=== PATIENT | male | born 1960 | race Caucasian/White ===

== ENCOUNTER 2017-02-02 13:59 | Inpatient (IN) ==
--- NOTE | 2017-01-30 21:18 | Discharge Summary ---
<Solomon Gonzalez - Last Filed: 02/01/17 21:25> - Discharge Diagnosis (1) Fracture of femur with malunion Priority: Primary Status: Acute Qualifiers: Encounter type: subsequent encounter Femur location: unspecified portion of femur Fracture type: closed Fracture morphology: other fracture Laterality: right Qualified Code(s): S72.8X1P - Other fracture of right femur , subsequent encounter for closed fracture with malunion (2) Tobacco use Priority: Secondary Status: Chronic - Discharge Medications Home Medications: Aspirin Enteric Coated [Aspirin EC] 325 mg PO DAILY #21 tablet.dr 02/01/17 [Rx] OxyCODONE Immed Rel [Roxicodone 5 MG] 5 - 10 mg PO Q6HR PRN #40 tablet 02/01/17 [Rx] Ibuprofen [Motrin] 800 mg PO Q8HR PRN 02/02/17 [History] Allergies/Adverse Reactions: Allergies No Known Allergies Allergy (Verified 02/02/17 14:31) Primary care physician: PCP NO - Patient Status Disposition: Transfer Inpatient Rehab Fac Condition: Good - Discharge Instructions Follow Up With: Yusef Jean Baptiste MD [Partnered Physician] - 03/03/17 8:05 am Solomon Gonzalez PAC [Physician Senior Cytogenetics Laboratory Director] - 02/12/17 10:30 am (another appointment with solomon is february 19 at 8:00 am.) IBAN,PCP [Primary Care Provider] - - Hospital Course Hospital course: Mr. Fierro is a 56 year old male - Time Spent with Patient Total time spent providing and/or coordinating discharge services: <Yusef Jean Baptiste - Last Filed: 02/05/17 08:20> Date of Encounter: 02/05/17 Time of Encounter: 08:19 - Discharge Diagnosis (1) Fracture of femur with malunion Priority: Primary Status: Acute Qualifiers: Encounter type: subsequent encounter Femur location: unspecified portion of femur Fracture type: closed Fracture morphology: other fracture Laterality: right Qualified Code(s): S72.8X1P - Other fracture of right femur , subsequent encounter for closed fracture with malunion (2) Tobacco use Priority: Secondary Status: Chronic (3) Acute blood loss anemia Priority: Primary Status: Acute (4) 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 Fierro is a 56 year old male The patient had an uneventful postoperative course. They received antibiotics and physical therapy and were discharged in stable condition. There will follow -up in the office in 2 weeks. Patient had a previous flexion contracture secondary to malunion. Postoperatively overnight did well in the brace unfortunately the brace was not able to hold full extension. Postop 1. Decision was made to take patient to the OR and do a long-leg casting. Otherwise uneventful postoperative course. - Time Spent with Patient Total time spent providing and/or coordinating discharge services:
[2017-02-02] MEDS ORDERED: Vancomycin 1,250 MG in D5% in Water 250 ML IVPB ONE (14:19)
[2017-02-02] MEDS ORDERED: Albuterol 2.5 MG/3 ML NEBULIZER IH ONE (14:19)
--- NOTE | 2017-02-02 14:23 | History & Physical Report ---
Date of Encounter: 02/02/17 Time of Encounter: 14:23 24 Hour HP Update - Instructions Instructions: If the History and Physical is less than 30 days old and was completed prior to A.M. admission and or procedure and has NOT been updated on calendar day of procedure please complete this update prior to performing procedure. - Update Patient reports changes in Medical Condition: No Changes in assessment/condition: No Changes in Medication: No Preop tests/diagnostics Reviewed: Yes Surgery Remains Indicated: Yes Consent for Planned Operative Procedure(s) Verified: Yes - Pre-Operative Checklist Preoperative Checklist Indicated: No Prophylactic Antibiotic Ordered: Yes Is VTE Prophylaxis Indicated?: Yes
[2017-02-02] MEDS ORDERED: Ringers Solution, Lactated 1,000 ML IVC SCH ×2 (14:30→19:52)
[2017-02-02] MEDS ORDERED: Famotidine 20 MG/2 ML VIAL IVP ONE (14:52)
--- NOTE | 2017-02-02 14:54 | Anesthesia Evaluation PreOp ---
Date of Encounter: 02/02/17 Time of Encounter: 15:00 - Past History Planned Operation: Rt TKA Cardiac History: Denies any Significant Hx Pulmonary History: Smoker BEAUTY CULTURIST APPRENTICE History: Denies Any Significant HX Other Medical History: Denies Any Significant HX Anesthesia History: No Prior Anesthetic Complications Alcohol Use: none Drug use: none Medications and Allergies Aspirin Enteric Coated [Aspirin EC] 325 mg PO DAILY #21 tablet. 02/01/17 [Rx] OxyCODONE Immed Rel [Roxicodone 5 MG] 5 - 10 mg PO Q6HR PRN #40 tablet 02/01/17 [Rx] Ibuprofen [Motrin] 800 mg PO Q8HR PRN 02/02/17 [History] Allergies No Known Allergies Allergy (Verified 02/02/17 14:31) - Meds/Allergy Pre-op Review Medications Reviewed: Yes Allergies Reviewed: Yes Beta Blockers on Current Med List: No Anesthesia Results - Labs Laboratory Tests 01/20/17 01/20/17 16:05 16:05 Hgb 14.2 Hct 41.4 Plt Count 186 Sodium 139 Potassium 4.3 BUN 26 Creatinine 1.10 Anesthesia Exam O2 Sat Height 1.83 m Height 1.83 m Weight 90.265 kg Weight 90.265 kg Height: 6'0 Weight: 190 lbs NPO (# of Hours): MN Pain Scale: 0 - HEENT Pupil (Motor): Pupils equal, EOMI Mallampati: II Denture Type: Upper: Complete Oral Opening: Greater than 3 - BEAUTY CULTURIST APPRENTICE LOC: Oriented BEAUTY CULTURIST APPRENTICE Motor: Normal RUE, Normal LUE, Normal RLE, Normal LLE, Normal Face BEAUTY CULTURIST APPRENTICE Sensory: Normal: RUE, LUE, RLE, LLE, Face - Cardiac Rhythm: Regular Murmur: None JVD: No Carotid Bruit: No - Pulmonary Breath Sounds: bilateral Clear Respiratory Effort: Symmetrical Anesthesia Assess/Plan ASA Score: 2 Modified [place] Scale for Level of Consciousness: Cooperative, oriented, and tranquil Anesthetic Plan: General, Regional Monitoring Plan: Standard Monitors Recovery Plan: PACU (Discussed GA and RA, agrees to proceed)
[2017-02-02] MEDS ORDERED: Lidocaine -MPF 2% 2 ML VIAL ONE (14:58)
[2017-02-02] MEDS ORDERED: *HR* Propofol 200 MG/20 ML VIAL IVP ONE (14:58)
[2017-02-02] MEDS ORDERED: *HR* FentaNYL (PF) 100 MCG/2 ML VIAL ONE ×3 (14:59→17:13)
[2017-02-02] MEDS ORDERED: *HR* Midazolam HCl 2 MG/2 ML VIAL ONE (14:59)
[2017-02-02] MEDS ORDERED: Ketorolac 30 MG/ML VIAL ONE ×2 (15:29→18:23)
[2017-02-02] MEDS ORDERED: ROPIVACAINE HCL/PF 0.5% 30 ML VIAL ONE (16:00)
[2017-02-02] MEDS ORDERED: Bupivacaine/Clonidine Syringe 1 EACH SYRINGE ONE (16:01)
[2017-02-02] MEDS ORDERED: Lidocaine -MPF 4% 5 ML AMPUL ONE (16:31)
--- NOTE | 2017-02-02 16:42 | Anesthesia Procedures ---
Date of Encounter: 02/02/17 Time of Encounter: 14:52 Procedures: Anesthesia - Nerve Block Procedure Date: 02/02/17 Time: 16:00 Pre-op Diagnosis: Rt Knee OA, Arthrpathy Surgical Procedure: Rt TKA Checklist: Correct Patient Identifier Correct side: Right Blood Thinner: No Monitor Applied: EKG, BP, Pulse Oximetry Supplemental Oxygen via Nasal Cannula (L/min): 2 Sedation: Versed (mg): 2 Sedation: Fentanyl (mcg): 100 Indication: Post Op Analgesia Block Type: Femoral, Other (IPACK) Catheter placed: No Depth at skin (cm): 3 Sterile Technique: Yes Ultrasound used: Yes Anatomy identified: Yes Visual spread of Local: Yes Neuro Stimulation: Yes Nerve Stimulator Range: >0.4 - 0.6 mA Blood on Needle Aspiration: No Smooth Injection of Local: Yes Pain with Injection of Local: No Prep: Chlorhexadine Needle: 22 x 50 mm Stimuplex Local: 0.25% Bupivicaine w/Clonidine 20 mcg/cc, Ropivacaine (0.5%) Volume (cc): 30 Number of Attempts: 1 Complications: None/effective block
[2017-02-02] MEDS ORDERED: *HR* HYDROmorphone 2 MG/ML SYRINGE ONE (17:33)
[2017-02-02] MEDS ORDERED: *HR* Enoxaparin 30 MG/0.3 ML SYRINGE SQ SCH (18:00)
--- NOTE | 2017-02-02 18:13 | Orthopedic Operative Note ---
Date of procedure: 02/02/17 Pre-op diagnosis: Right distal femoral malunion, right knee arthritis Post-op diagnosis: same Procedure: Procedure: Right distal femoral Total knee replacement Estimated blood loss: 600 cc Hardware: Biomet OSS distal femoral system 7 cm right femur, 11 segment, 19.5 x 150 porous stem area tibia 75 160 x 10, 20 mm Leilani, 40 mm patella. Exam Under anesthesia: 30 degree flexion contracture and severe varus deformity , internal rotation deformity Procedural Notes: Severe distal femoral nonunion in a varus posteriorly angulated position shortened approximately 5 cm grade 4 arthritic changes medial compartment patellofemoral joint. Operative procedure: The patient was brought to the operating room and placed on the operating room table. After general anesthesia was administered the operative knee was examined. Findings were noted in the exam under anesthesia. The operative extremity was prepped and draped in sterile surgical fashion. The patient received IV antibiotics prior to skin incision. An extended midline incision was made centered over the patella. The incision was made through the skin and subcutaneous tissue. A medial parapatellar tendon approach was performed. Care was taken to preserve tissue along the medial aspect of the patella. And to protect the patella tendon. The deep MCL was released off the medial tibia. The infra patella fat pad was excised. The incision was taken approximately 18 inches proximal to the joint line. The soft tissue was removed along the anterior aspect of the femur. The ACL the PCL were excised. Subperiosteal dissection was taken down around the distal femur and extended proximally. The malunion was encountered and involved a significantly posteriorly angulated component. This was taken proximally to the area of transition. Once the area of transition was identified proximal to the malunion was transected with an oscillating saw. The distal femur was passed off as an en bloc specimen. The femur was then reamed up to a 20.5 x 1 50. Attention was then turned to the tibia. The entry holes made for intramedullary tibial guide guide was seated to resect 2 mm off the more abnormal medial side. Tibial cut was made without complication. Tibia was sized to a 75 was then reamed to a 10 x 160. Trial had good fit and fixation. The femur was then assembled it was sized to a 7 with an 11 segment. This was attached to a 19 stem by 150. Patient had full extension and flexion with a 20 mm Leilani. The patella was everted and cut was made at the level of the insertion of the quadriceps and patella tendon. The patella was sized the guide was seated and the lug holes are drilled. Trial reduction revealed excellent patella tracking. All trial components were removed all bony surfaces were irrigated. The tibia was cemented first followed by the patella. The patella was held in place with the patellar holding clamp. The femur was assembled on the back table and impacted in place in the appropriate orientation. The components were then coupled with the bushings Jose Alberto and locking pin. Patient had full extension and full flexion and excellent patella tracking. After the cement had hardened, the knee sat for 2 minutes with a Betadine saline solution. The knee was then irrigated out with 2 L of pulse irrigation. The extensor mechanism was closed with #2 PDS suture. The subcutaneous tissue was then irrigated and closed deep with #1 PDS suture superficially with 0 PDS suture and skin was closed with skin enrrique. The patient was then placed in a sterile dressing and a postoperative brace extubated and transferred to recovery room in stable condition. Anesthesia: CLIFFORD Surgeon: Yusef Jean Baptiste Floriculturist: Vida Gonzalez Condition: stable Disposition: PACU
[2017-02-02] MEDS ORDERED: Ondansetron 4 MG/2 ML VIAL IVP ONE (18:22)
[2017-02-02] MEDS: *HR* HYDROmorphone (PF) 1 MG/ML SYRINGE IVP PRN ×4 (18:36→18:56)
--- NOTE | 2017-02-02 18:57 | Anesthesia Evaluation Post Op ---
Date of Encounter: 02/02/17 Time of Encounter: 19:00 - Vital Signs Vital Signs: Vital Signs/O2 Sat/Glucose, Most Current Pulse BP Pulse Ox 02/02/17 16:01 74 173/79 100 - Lungs Lungs: Clear Ascult./Percussion - Airway Airway: Non-obstructed - Cardiovascular Regular Rate - Mental Status Mental Status: Alert & Oriented, Answers Appropriately - Pain Pain Scale: 0 - Nausea Vomiting Nausea Vomiting: Not Present - Hydration Hydration: Ice chips - Discharge PostOp Status: Transfer Patient to floor
[2017-02-02 19:37] LABS: Hemoglobin 13.3 g/dL (12.9-16.9)
[2017-02-02] MEDS ORDERED: Acetaminophen 325 MG TABLET PO PRN (19:52)
[2017-02-02] MEDS ORDERED: *HR* OxyCODONE Immed Rel 5 MG TABLET PO PRN (19:52)
[2017-02-02] MEDS ORDERED: Sennosides 8.6 MG TABLET PO PRN (19:52)
[2017-02-02] MEDS ORDERED: Ondansetron 4 MG/2 ML VIAL IVP PRN (19:52)
[2017-02-02] MEDS ORDERED: Naloxone 0.4 MG/ML INJ IVP PRN (19:52)
[2017-02-02] MEDS ORDERED: MOM Conc 10 ML UD.LIQ PO PRN (19:52)
[2017-02-02] MEDS ORDERED: Ibuprofen 800 MG TABLET PO PRN (19:52)
[2017-02-02] MEDS ORDERED: ceFAZolin 2,000 MG in D5% in Water 100 ML IVPB SCH (19:52)
[2017-02-02] MEDS ORDERED: Temazepam 15 MG CAPSULE PO PRN (19:52)
[2017-02-02] MEDS: ceFAZolin 2,000 MG in D5% in Water 100 ML IVPB SCH (21:48)
[2017-02-03] MEDS: ceFAZolin 2,000 MG in D5% in Water 100 ML IVPB SCH (04:13)
[2017-02-03] MEDS: *HR* Enoxaparin 30 MG/0.3 ML SYRINGE SQ SCH ×2 (06:09→18:28)
[2017-02-03 06:32] LABS: Hematocrit 33.4 % (37.5-50.1)
[2017-02-03 06:34] LABS: Hemoglobin 11.1 g/dL (12.9-16.9)
[2017-02-03 06:43] LABS: BUN/Creatinine Ratio 26 (6-26); Blood Urea Nitrogen 23 mg/dL (8-26); Calcium 7.8 mg/dL (8.6-10.8); Carbon Dioxide 24 mEq/L (19-29); Chloride 103 mEq/L (98-109); Glucose 126 mg/dL (70-99); Osmolality,Calculated 281 (280-300); Potassium 4.1 mEq/L (3.5-4.5); Sodium 133 mEq/L (136-145); eGFR For African Americans > 60 (> 60); eGFR For Non-African Americans > 60 (> 60)
--- NOTE | 2017-02-03 06:43 | Orthopedics Progress Note ---
Date of Encounter: 02/03/17 Time of Encounter: 06:43 - Assessment and Plan (1) Fracture of femur with malunion Current Visit: Yes Status: Acute Qualifiers: Encounter type: subsequent encounter Femur location: unspecified portion of femur Fracture type: closed Fracture morphology: other fracture Laterality: right Qualified Code(s): S72.8X1P - Other fracture of right femur , subsequent encounter for closed fracture with malunion (2) Tobacco use Current Visit: Yes Status: Chronic Subjective Interval history: pt doing well no complaints afvss operative extremity NVI dressing c/d/i calves nt continue postop care Hb 11 Objective Vital signs: Vital Signs Temp Pulse Resp BP Pulse Ox 02/03/17 06:21 97.9 F 76 16 134/84 98 02/03/17 04:00 97.4 F L 71 17 145/75 98 02/03/17 00:35 98.1 F 70 18 131/71 97 02/02/17 22:45 98.0 F 71 16 134/72 96 02/02/17 21:56 97.6 F 70 16 134/78 98 02/02/17 20:50 97.4 F L 82 16 135/72 97 02/02/17 20:20 97.6 F 64 16 128/78 95 02/02/17 19:52 96.7 F L 69 17 146/83 96 02/02/17 19:26 61 16 138/90 99 02/02/17 19:13 61 16 140/78 99 02/02/17 19:03 97.7 F 66 16 150/85 98 02/02/17 18:53 69 16 157/85 96 02/02/17 18:43 77 16 139/91 97 02/02/17 18:33 97.0 F L 82 16 139/62 94 L 02/02/17 16:01 74 173/79 100 Intake and Output 02/02/17 02/02/17 02/03/17 15:59 23:59 07:59 Intake Total 900 / 900 Output Total 800 / 800 200 / 200 Balance -800 / -800 700 / 700 Intake: IV Fluids 200 / 200 Ancef 2,000 MG In 200 / 200 Dextrose 5% 100 ML @ 200 mls/hr IVPB Q8H [facility] Rx#: [id number] Oral 700 / 700 Output: Urine 200 / 200 200 / 200 Estimated Blood Loss 600 / 600 Other: # Voids 1 Weight 90.265 kg - Labs CBC & BMP: 02/03/17 06:19 Labs: Abnormal lab results Hgb 11.1 g/dL (12.9-16.9) L D 02/03/17 06:19 Hct 33.4 % (37.5-50.1) L 02/03/17 06:19 - VTE Documentation of Mechanical Device: Venous foot pump, device Consult Discharge Plan - Plan Referrals: NO,PCP [Primary Care Provider] -
[2017-02-03] MEDS: *HR* OxyCODONE Immed Rel 5 MG TABLET PO PRN ×2 (14:04→20:59)
[2017-02-03] MEDS: *HR* HYDROmorphone (PF) 1 MG/ML SYRINGE IVP PRN ×2 (18:28→23:49)
[2017-02-04] MEDS: *HR* Enoxaparin 30 MG/0.3 ML SYRINGE SQ SCH ×2 (06:32→18:19)
[2017-02-04] MEDS: *HR* OxyCODONE Immed Rel 5 MG TABLET PO PRN (06:32)
[2017-02-04 06:55] LABS: Hematocrit 27.7 % (37.5-50.1)
--- NOTE | 2017-02-04 06:57 | Orthopedics Progress Note ---
Date of Encounter: 02/04/17 Time of Encounter: 06:56 - Assessment and Plan (1) Fracture of femur with malunion Current Visit: Yes Status: Acute Qualifiers: Encounter type: subsequent encounter Femur location: unspecified portion of femur Fracture type: closed Fracture morphology: other fracture Laterality: right Qualified Code(s): S72.8X1P - Other fracture of right femur , subsequent encounter for closed fracture with malunion (2) Tobacco use Current Visit: Yes Status: Chronic Subjective Interval history: Patient seen this morning with flexion posture of the right knee. Brace is not holding extension. Patient had a long history of a flexion contracture due to a malunion for 30 years. This is not correctable with the patient awake. Recommendation is to take the patient to the OR. To Hold the Position. Discussed This with the Patient Will Be Done Today. Objective Vital signs: Vital Signs Temp Pulse Resp BP Pulse Ox 02/04/17 06:48 98.1 F 87 16 183/84 95 02/04/17 04:00 98.0 F 69 17 114/71 95 02/03/17 23:53 100.1 F H 94 18 147/103 98 02/03/17 21:00 98.1 F 64 17 121/87 97 02/03/17 15:16 97.5 F L 90 16 145/88 98 02/03/17 11:18 97.7 F 83 16 148/64 98 Intake and Output 02/03/17 02/03/17 02/04/17 15:59 23:59 07:59 Intake Total 360 / 360 600 / 600 300 / 300 Output Total 575 / 575 375 / 375 Balance 360 / 360 25 / 25 -75 / -75 Intake: Oral 360 / 360 600 / 600 300 / 300 Output: Urine 575 / 575 375 / 375 Other: Meal Breakfast Percent of Meal Consumed 100% Stool Size Small Stool Characteristics Normal for Patient Stool Color Brown # Bowel Movements 1 - Labs CBC & BMP: 02/03/17 06:19 02/03/17 06:19 Labs: Abnormal lab results Hgb 11.1 g/dL (12.9-16.9) L D 02/03/17 06:19 Hct 33.4 % (37.5-50.1) L 02/03/17 06:19 Sodium 133 mEq/L (136-145) L 02/03/17 06:19 Glucose 126 mg/dL (70-99) H 02/03/17 06:19 Calcium 7.8 mg/dL (8.6-10.8) L 02/03/17 06:19 - VTE Documentation of Mechanical Device: Venous foot pump, device Consult Discharge Plan - Plan Referrals: NO,PCP [Primary Care Provider] -
[2017-02-04 07:05] LABS: Hemoglobin 9.5 g/dL (12.9-16.9)
[2017-02-04 07:10] LABS: BUN/Creatinine Ratio 20 (6-26); Blood Urea Nitrogen 16 mg/dL (8-26); Carbon Dioxide 26 mEq/L (19-29); Chloride 102 mEq/L (98-109); Glucose 105 mg/dL (70-99); Osmolality,Calculated 278 (280-300); Potassium 3.9 mEq/L (3.5-4.5); Sodium 133 mEq/L (136-145); eGFR For African Americans > 60 (> 60); eGFR For Non-African Americans > 60 (> 60)
[2017-02-04 07:27] LABS: Calcium 8.4 mg/dL (8.6-10.8)
[2017-02-04] MEDS: *HR* HYDROmorphone (PF) 1 MG/ML SYRINGE IVP PRN (08:57)
--- NOTE | 2017-02-04 14:59 | Anesthesia Evaluation PreOp ---
Date of Encounter: 02/04/17 Time of Encounter: 15:00 - Past History Planned Operation: Cast Placement Rt Leg Cardiac History: Denies any Significant Hx Pulmonary History: Smoker QUARRY BOSS History: Denies Any Significant HX Other Medical History: Denies Any Significant HX Anesthesia History: No Prior Anesthetic Complications Alcohol Use: none Drug use: none Medications and Allergies Aspirin Enteric Coated [Aspirin EC] 325 mg PO DAILY #21 tablet. 02/01/17 [Rx] OxyCODONE Immed Rel [Roxicodone 5 MG] 5 - 10 mg PO Q6HR PRN #40 tablet 02/01/17 [Rx] Ibuprofen [Motrin] 800 mg PO Q8HR PRN 02/02/17 [History] Allergies No Known Allergies Allergy (Verified 02/02/17 14:31) - Meds/Allergy Pre-op Review Medications Reviewed: Yes Allergies Reviewed: Yes Beta Blockers on Current Med List: No Anesthesia Results - Labs 02/04/17 06:40 02/04/17 06:40 Anesthesia Exam O2 Sat O2 Sat by Pulse Oximetry 99 O2 Sat by Pulse Oximetry 95 O2 Sat by Pulse Oximetry 95 O2 Sat by Pulse Oximetry 95 O2 Sat by Pulse Oximetry 98 O2 Sat by Pulse Oximetry 97 O2 Sat by Pulse Oximetry 98 Vital Signs Pulse BP Pulse Ox 74 173/79 100 02/02/17 16:01 02/02/17 16:01 02/02/17 16:01 Height: 6'0 Weight: 190 lbs NPO (# of Hours): MN Pain Scale: 0 - HEENT Pupil (Motor): Pupils equal, EOMI Mallampati: II Teeth: Edentulous Denture Type: Upper: Complete Oral Opening: Less than or equal to 3 - QUARRY BOSS LOC: Oriented QUARRY BOSS Motor: Normal RUE, Normal LUE, Normal RLE, Normal LLE, Normal Face QUARRY BOSS Sensory: Normal: RUE, LUE, RLE, LLE, Face - Cardiac Rhythm: Regular Murmur: None JVD: No Carotid Bruit: No - Pulmonary Breath Sounds: bilateral Clear Respiratory Effort: Symmetrical Anesthesia Assess/Plan ASA Score: 2 Modified [place]rien Scale for Level of Consciousness: Cooperative, oriented, and tranquil Anesthetic Plan: General Monitoring Plan: Standard Monitors Recovery Plan: PACU (Discussed GA, agrees to proceed)
--- NOTE | 2017-02-04 15:32 | Orthopedic Operative Note ---
Date of procedure: 02/04/17 Pre-op diagnosis: Right leg flexion position Post-op diagnosis: same Procedure: Procedure: Right leg casting No blood loss Patient status post distal femoral replacement unable to keep the leg straight in a brace decision was made to taken to the operating room straighten the leg out. Long-leg cast. Patient brought to the operating room after IV sedation was administered the brace was removed the knee went into full extension without any effort. Dressings changed wound clean dry and intact. Patient placed in a well-padded long leg cast. Patient with preoperative soft tissue skin abrasions from prior to his surgery Thursday. Patient was placed in the cast and transferred to recovery in stable condition Anesthesia: MAC Surgeon: Yusef Jean Baptiste Condition: stable Disposition: PACU
[2017-02-04] MEDS ORDERED: *HR* Propofol 200 MG/20 ML VIAL IVP ONE ×3 (15:37→15:49)
[2017-02-04] MEDS ORDERED: Ondansetron 4 MG/2 ML VIAL IVP PRN (16:06)
[2017-02-04] MEDS ORDERED: Ibuprofen 800 MG TABLET PO PRN (16:06)
[2017-02-04] MEDS ORDERED: Acetaminophen 325 MG TABLET PO PRN (16:06)
[2017-02-04] MEDS ORDERED: *HR* HYDROmorphone (PF) 1 MG/ML SYRINGE IVP PRN (16:06)
[2017-02-04] MEDS ORDERED: Naloxone 0.4 MG/ML INJ IVP PRN (16:06)
[2017-02-04] MEDS ORDERED: *HR* OxyCODONE Immed Rel 5 MG TABLET PO PRN ×2 (16:06)
[2017-02-04] MEDS ORDERED: Ringers Solution, Lactated 1,000 ML IVC SCH (16:06)
[2017-02-04] MEDS ORDERED: Temazepam 15 MG CAPSULE PO PRN (16:06)
[2017-02-04] MEDS ORDERED: Sennosides 8.6 MG TABLET PO PRN (16:06)
[2017-02-04] MEDS ORDERED: MOM Conc 10 ML UD.LIQ PO PRN (16:06)
[2017-02-05] MEDS: *HR* Enoxaparin 30 MG/0.3 ML SYRINGE SQ SCH (05:13)
--- NOTE | 2017-02-05 08:21 | Orthopedics Progress Note ---
Date of Encounter: 02/05/17 Time of Encounter: 08:21 - Assessment and Plan (1) Fracture of femur with malunion Current Visit: Yes Status: Acute Qualifiers: Encounter type: subsequent encounter Femur location: unspecified portion of femur Fracture type: closed Fracture morphology: other fracture Laterality: right Qualified Code(s): S72.8X1P - Other fracture of right femur , subsequent encounter for closed fracture with malunion (2) Tobacco use Current Visit: Yes Status: Chronic (3) Acute blood loss anemia Current Visit: Yes Status: Acute (4) Flexion contracture of right knee Current Visit: Yes Status: Chronic Subjective Interval history: Patient doing well cast intact minimal complaints patient is clear for discharge today. Hemoglobin 9.5 Objective Vital signs: Vital Signs Temp Pulse Resp BP Pulse Ox 02/05/17 06:29 98.8 F 89 16 129/78 95 02/05/17 05:08 98.7 F 86 16 136/76 96 02/05/17 01:00 98.1 F 77 16 160/77 97 02/04/17 21:05 97 02/04/17 19:29 98.7 F 88 16 165/79 97 02/04/17 17:35 99.9 F H 75 14 172/79 98 02/04/17 16:13 98.1 F 83 12 152/77 97 02/04/17 11:35 97.7 F 102 16 139/74 99 02/04/17 09:03 95 02/04/17 08:50 171/97 Intake and Output 02/04/17 02/05/17 02/05/17 23:59 07:59 15:59 Intake Total 0 / 0 400 / 400 Output Total 650 / 650 350 / 350 Balance -650 / -650 50 / 50 Intake: Oral 0 / 0 400 / 400 Output: Urine 650 / 650 350 / 350 - Labs CBC & BMP: 02/04/17 06:40 02/04/17 06:40 Labs: Abnormal lab results Hgb 9.5 g/dL (12.9-16.9) L D 02/04/17 06:40 Hct 27.7 % (37.5-50.1) L 02/04/17 06:40 Sodium 133 mEq/L (136-145) L 02/04/17 06:40 Glucose 105 mg/dL (70-99) H 02/04/17 06:40 Calculated Osmolality 278 (280-300) L 02/04/17 06:40 Calcium 8.4 mg/dL (8.6-10.8) L 02/04/17 06:40 - VTE Documentation of Mechanical Device: Venous foot pump, device Consult Discharge Plan - Plan Referrals: Yusef Jean Baptiste MD [Partnered Physician] - 03/03/17 8:05 am Solomon Gonzalez, PAC [Physician Environmental Scientist] - 02/12/17 10:30 am (another appointment with solomon is february 19 at 8:00 am.) NO,PCP [Primary Care Provider] -
[2017-02-05 10:47] VITALS: BP 136/74
== END 2017-02-05 16:00 | DRG 470 ==
LOC: SAMDAY 13:59 → 3NENU 19:49
PROVIDERS: ADMIT Orthopaedic Surgery; ATTEND Orthopaedic Surgery

== ENCOUNTER 2018-05-14 21:17 | Inpatient (IN) ==
[2018-05-14] MEDS ORDERED: Ipratropium/Albuterol Neb 3 ML IH ONE (22:14)
[2018-05-14] MEDS ORDERED: Aspirin 81 MG TAB.CHEW PO STA (22:14)
[2018-05-14 22:24] LABS: Basophils # 0.1 K/mcL (0.0-0.2); Basophils % 0.5 %; Hematocrit 41.1 % (37.5-50.1); Hemoglobin 13.8 g/dL (12.9-16.9); Immature Granulocytes % 0.3 % (0-4); Lymphocytes # 0.5 K/mcL (0.6-4.6); Lymphocytes % 4.9 %; Mean Corpuscular HGB Conc 33.6 g/dL (31.6-35.5); Mean Corpuscular Hemoglobin 30.5 pg (28.0-33.3); Mean Corpuscular Volume 90.9 fL (83.0-100.0); Mean Platelet Volume 9.5 fL (9.4-12.4); Monocytes # 0.5 K/mcL (0.0-1.3); Monocytes % 4.2 %; Platelet Count 190 K/mcL (140-400); Red Blood Count 4.52 M/mcL (4.19-5.50); Red Cell Distribution Width 13.2 % (11.5-14.5); Segmented Neutrophils % 90.1 %
[2018-05-14 22:46] LABS: BUN/Creatinine Ratio 18 (6-26); Blood Urea Nitrogen 17 mg/dL (8-23); Calcium 8.9 mg/dL (8.6-10.3); Carbon Dioxide 26 mEq/L (23-29); Chloride 103 mEq/L (98-107); Glucose 174 mg/dL (70-105); Osmolality,Calculated 290 (280-300); Potassium 3.8 mEq/L (3.5-5.1); Sodium 137 mEq/L (136-145); eGFR For African Americans > 60 (> 60); eGFR For Non-African Americans > 60 (> 60)
[2018-05-14 22:49] LABS: Troponin I 0.43 ng/mL (< 0.04)
--- NOTE | 2018-05-14 22:54 | Emergency Department Note ---
Disposition Clinical Impression: NSTEMI (non-ST elevated myocardial infarction) Disposition: Admitted As Inpatient Condition: Good Referrals: NONE,PCP [Primary Care Provider] - Forms: ED Satisfaction Letter Time of Disposition: 23:08 Chest Pain HPI - General Chief Complaint: ED Chest Pain Stated Complaint: Difficult breathing Time Seen by Provider: 05/14/18 21:53 Source: patient Limitations: no limitations Vital Signs Reviewed: Yes Nursing Notes Reviewed: Yes - History of Present Illness HPI Narrative: This is a 58 year-old male with history of peripheral vascular disease and tobacco use who presents with dyspnea and substernal chest tightness for the past 4 days. The pain was mild/intermittent at first but suddenly worsened about 3 hours prior to arrival. Associated with dyspnea. Symptoms markedly improved after EMS administered nitroglycerin. Pt complaint: chest pain, other (dyspnea) Onset (ago): day(s) (4) Duration: other (worsened 3 hours ago) Pain Location: substernal Severity: moderate Severity scale (1-10): 2 Quality: tightness, heaviness Pain Radiation: none Improves with: nothing Worsens with: exertion Associated symptoms: Reports: dyspnea. Denies: nausea, vomiting, diaphoresis, syncope, palpitations, fever, cough, leg swelling - Related Data Allergies Allergy/AdvReac Type Severity Reaction Status Date / Time No Known Allergies Allergy Verified 02/02/17 14:31 All systems ED: reviewed and negative except as stated. Constitutional: Denies: fever Cardiovascular: Reports: as per HPI, chest pain, dyspnea on exertion, edema ( chronic bilateral lower extremity edema, unchanged). Denies: palpitations Respiratory: Reports: dyspnea. Denies: cough Gastrointestinal: Denies: abdominal pain, nausea Musculoskeletal: Denies: back pain, neck pain Neurological: Denies: headache, weakness, numbness Chest Pain PMH - Past Medical History Medical history: Reports: peripheral artery disease Surgical history: Reports: knee replacement Psychiatric history: Reports: no psych history, PTSD - Social History Smoking Status: Current every day smoker Alcohol use: Reports: none Drug use: Reports: none Physical Exam - General Limitations: no limitations General appearance: alert, in no apparent distress - Head Head exam: atraumatic, normocephalic - Neck Neck exam: Present: normal inspection - Respiratory Respiratory exam: Present: wheezes (scattered bilaterally), other (decreased air entry) - Cardiovascular Cardiovascular exam: Present: regular rate, normal rhythm, normal heart sounds - Abdominal Exam Abdominal exam: Present: soft, Non-Tender. Absent: distention - Extremities Exam Extremities exam: Present: pedal edema (bilateral, R>L, patient says chronic) - Neurological Exam Neurological exam: Present: alert, oriented X3, CN II-XII intact. Absent: motor sensory deficit - Psychiatric Psychiatric exam: Present: normal affect, normal mood - Skin Skin exam: Present: warm, dry, intact Course - Reevaluation(s) Reevaluation #1: On recheck, patient remains stable, CP-free. Discussed test results with patient and family. Time: 23:07 - Consultations Consultation #1: Reviewed case with Dr. Bolanos, and patient accepted for admission, pending consultation with cardiology. Time: 23:30 Consultation #2: Reviewed case with Dr. Knutson. He is in agreement with plan of care and available for consultation. Time: 23:33 Vital Signs Temperature 97.8 F 05/14/18 21:20 Pulse Rate 96 05/14/18 21:20 Respiratory Rate 22 05/14/18 21:20 Blood Pressure 126/84 05/14/18 21:20 O2 Sat by Pulse Oximetry 99 05/14/18 21:20 Temperature 97.8 F 05/14/18 21:20 Pulse Rate 96 05/14/18 21:20 Respiratory Rate 17 05/14/18 22:54 Blood Pressure 128/82 05/14/18 22:54 O2 Sat by Pulse Oximetry 95 05/14/18 22:54 Oxygen Delivery Oxygen Delivery Non Rebreather Mask Chest Pain - Lab Data Result diagrams: 05/14/18 22:10 05/14/18 22:10 Lab Results 05/14/18 05/14/18 05/14/18 Range/Units 22:10 22:10 22:10 WBC 11.0 (4.3-11.1) K/mcL RBC 4.52 (4.19-5.50) M/mcL Hgb 13.8 (12.9-16.9) g/dL Hct 41.1 (37.5-50.1) % MCV 90.9 (83.0-100.0) fL MCH 30.5 (28.0-33.3) pg MCHC 33.6 (31.6-35.5) g/dL RDW 13.2 (11.5-14.5) % Plt Count 190 (140-400) K/mcL MPV 9.5 (9.4-12.4) fL Immature Gran % 0.3 (0-4) % Seg Neutrophils % 90.1 % Lymphocytes % 4.9 % Monocytes % 4.2 % Eosinophils % 0.0 % Basophils % 0.5 % Neutrophils # 10.0 H (1.6-8.9) K/mcL Lymphocytes # 0.5 L (0.6-4.6) K/mcL Monocytes # 0.5 (0.0-1.3) K/mcL Eosinophils # 0.0 (0.0-0.6) K/mcL Basophils # 0.1 (0.0-0.2) K/mcL PT (9.4-12.1) Seconds INR APTT (26.0-36.0) Seconds Sodium 137 (136-145) mEq/L Potassium 3.8 (3.5-5.1) mEq/L Chloride 103 (98-107) mEq/L Carbon Dioxide 26 (23-29) mEq/L BUN 17 (8-23) mg/dL Creatinine 0.92 (0.70-1.30) mg/dL Est GFR ( Amer) > 60 (> 60) Est GFR (Non-Af Amer) > 60 (> 60) BUN/Creatinine Ratio 18 (6-26) Glucose 174 H (70-105) mg/dL Calculated Osmolality 290 (280-300) Lactic Acid (0.5-2.2) mmol/L Calcium 8.9 (8.6-10.3) mg/dL Troponin I 0.43 H* (< 0.04) ng/mL B-Natriuretic Peptide 59 (Less than 100) pg/mL 05/14/18 05/14/18 Range/Units 22:10 22:12 WBC (4.3-11.1) K/mcL RBC (4.19-5.50) M/mcL Hgb (12.9-16.9) g/dL Hct (37.5-50.1) % MCV (83.0-100.0) fL MCH (28.0-33.3) pg MCHC (31.6-35.5) g/dL RDW (11.5-14.5) % Plt Count (140-400) K/mcL MPV (9.4-12.4) fL Immature Gran % (0-4) % Seg Neutrophils % % Lymphocytes % % Monocytes % % Eosinophils % % Basophils % % Neutrophils # (1.6-8.9) K/mcL Lymphocytes # (0.6-4.6) K/mcL Monocytes # (0.0-1.3) K/mcL Eosinophils # (0.0-0.6) K/mcL Basophils # (0.0-0.2) K/mcL PT 12.2 H (9.4-12.1) Seconds INR 1.1 APTT 34.0 (26.0-36.0) Seconds Sodium (136-145) mEq/L Potassium (3.5-5.1) mEq/L Chloride (98-107) mEq/L Carbon Dioxide (23-29) mEq/L BUN (8-23) mg/dL Creatinine (0.70-1.30) mg/dL Est GFR ( Amer) (> 60) Est GFR (Non-Af Amer) (> 60) BUN/Creatinine Ratio (6-26) Glucose (70-105) mg/dL Calculated Osmolality (280-300) Lactic Acid 1.6 (0.5-2.2) mmol/L Calcium (8.6-10.3) mg/dL Troponin I (< 0.04) ng/mL B-Natriuretic Peptide (Less than 100) pg/mL - Radiology Data Radiology results reviewed: Yes I reviewed the patient's radiology results. XR/XR chest 1V portable IMPRESSION: 1. Prominent interstitial markings are nonspecific but may represent underlying COPD. 2. Rounded right infrahilar opacity probably represents a pulmonary vessel on end. 3. Otherwise no definite acute consolidation. - EKG Data EKG attestation: Yes I reviewed and interpreted this EKG. EKG shows normal: sinus rhythm, axis Rate: tachycardia [place]alea/QRS: normal ST segment depression in: II, III, aVF Ectopy: PVC When compared to previous EKG there are: previous EKG unavailable (on request) Interpretation: nonspecific ST-T wave changes
[2018-05-14] MEDS ORDERED: *HR* Heparin 5,000 UNIT/ML VIAL IVP ONE ×2 (22:59→23:02)
[2018-05-14] MEDS ORDERED: *HR* Heparin 5,000 UNIT/ML VIAL IVP PRN ×2 (23:02)
[2018-05-14 23:19] LABS: INR 1.1; Prothrombin Time 12.2 Seconds (9.4-12.1)
[2018-05-14] MEDS: Heparin 25,000 UNIT/500 ML D5W 25,000 UNIT/500 ML BAG IVC SCH (23:28)
--- NOTE | 2018-05-15 | Internal Med History&Physical ---
Date of Encounter: 05/15/18 Time of Encounter: 00:00 Internal Medicine - H&P: HPI Admitted From: Home History of present illness: Mr. Fierro is a 58 year old male with h/o peripheral vascular disease and tobacco use presents with c/o difficulty breathing and chest pressure, his symptoms began this evening after he returned home from work. He states he was sitting down when he began to feel like he had to work to pull air in and to push the air out--he hasn't experienced anything like this before. He's had shortness of breath over the past month when he exerts himself; he admits occasional PND. Also admits to substernal, non-radiating chest pressure today that lasted 15 minutes before resolving on its own. He reports similar, but less intense, episodes of chest pressure with exertion over the last month. He denies diaphoresis, paresthesias, nausea, vomiting, headache, vision changes, abdominal pain in association with his chest pain. Past Med Surg Social Fam HX - Past Medical History Medical history: peripheral artery disease Psychiatric history: no psych history, PTSD - Past Surgical History Surgical History: knee replacement - Social History Smoking Status: Current every day smoker Smokeless Tobacco Status: No Alcohol use: none Drug use: none - Family History Brother Living Status: Still Living Hx Family Cardiac Disorders: Yes Hx Family Respiratory Disorders: No Hx Family Cancer: Yes Hx Family GI Disorders: No Hx Family Endocrine Disorder: No Hx Family Neuromuscular Disorders: No Hx Family Neurologic Disorders: No Hx Family HEENT Disorders: No Hx Family Autoimmune Disorders: No Internal Medicine - H&P: Meds 3 Allergy/AdvReac Type Severity Reaction Status Date / Time No Known Allergies Allergy Verified 02/02/17 14:31 All Systems PM: A 10-system review of systems was performed and is negative for pertinent findings except as documented above in the HPI. - Constitutional Constitutional: as per HPI, no chills, no fatigue - EENT Eyes: as per HPI, no blurry vision, no change in vision - Cardiovascular Cardiovascular ROS IM: as per HPI, dyspnea, orthopnea, no edema - Respiratory Respiratory: as per HPI - Gastrointestinal Gastrointestinal: no abdominal pain, no constipation, no cramping, no diarrhea - Neurological Neurological ROS: no loss of vision, no paresthesias - Constitutional Vitals: Temp Pulse Resp BP Pulse Ox 97.8 F 84 17 137/90 98 05/14/18 21:20 05/14/18 23:33 05/14/18 22:54 05/14/18 23:33 05/14/18 23:33 General appearance: Present: A&O X 3, no acute distress, answers questions appropriately - Head Head exam: Present: atraumatic, normal inspection, normocephalic - Eye Eye exam: Present: normal appearance, PERRL Pupils: Present: PERRL - ENT ENT exam: Present: mucous membranes moist - Neck Neck exam general surgery: Present: supple, trachea midline - Respiratory Respiratory exam: Present: decreased breath sounds, CTAB. Absent: rales, respiratory distress, rhonchi, wheezes - Cardiovascular Cardiovascular exam: Present: RRR, +S1, +S2 - GI/Abdominal GI/Abdominal exam: Present: normal bowel sounds, soft. Absent: distended, rebound, tenderness - Extremities Exam Extremities exam: Present: warm. Absent: cyanotic, tenderness - Neurological Exam Neurological exam: Present: alert, CN II-XII intact, oriented X3, no focal deficits. Absent: facial droop, speech deficit - Psychiatric Psychiatric exam: Present: normal affect, normal mood Internal Med - H&P Results - Labs CBC & Chem 7: 05/15/18 04:57 05/15/18 04:57 - Assessment and plan (1) NSTEMI (non-ST elevated myocardial infarction) Current Visit: Yes Status: Acute Assessment and plan: Received 324 mg ASA in ED Initial troponin 0.43 HEART score 7: 50-65% risk of adverse cardiac event Plan Repeat troponin x 2 Start atorvastatin 80 mg daily Continue heparin gtt Repeat EKG 06:00 AM Check magnesium (2) Elevated troponin level Current Visit: Yes Status: Acute Assessment and plan: As above for "NSTEMI" (3) Tobacco use Current Visit: Yes Status: Chronic Assessment and plan: Increases pt's risk of major adverse cardiac risk Encourage smoking cessation (4) Hyperglycemia Current Visit: Yes Status: Acute Assessment and plan: Glucose 174 on admission No known h/o diabetes Plan: Continue to monitor glucose levels (5) DVT prophylaxis Current Visit: Yes Status: Acute Assessment and plan: Anticoagulation with heparin drip - Time Spent With Patient Total time spent is greater than 50% in coordination of care (as documented) at patient's floor/unit and/or counseling patient:
[2018-05-15 05:08] LABS: Basophils # 0.1 K/mcL (0.0-0.2); Basophils % 0.8 %; Hematocrit 42.2 % (37.5-50.1); Immature Granulocytes % 0.2 % (0-4); Lymphocytes # 1.4 K/mcL (0.6-4.6); Lymphocytes % 15.4 %; Mean Corpuscular HGB Conc 33.2 g/dL (31.6-35.5); Mean Corpuscular Volume 90.4 fL (83.0-100.0); Mean Platelet Volume 9.6 fL (9.4-12.4); Monocytes # 0.7 K/mcL (0.0-1.3); Monocytes % 7.3 %; Neutrophils # 6.8 K/mcL (1.6-8.9); Platelet Count 194 K/mcL (140-400); Red Blood Count 4.67 M/mcL (4.19-5.50); Red Cell Distribution Width 13.3 % (11.5-14.5); Segmented Neutrophils % 76.3 %
[2018-05-15 05:18] LABS: INR 1.1; Prothrombin Time 12.4 Seconds (9.4-12.1)
[2018-05-15 05:30] LABS: BUN/Creatinine Ratio 19 (6-26); Blood Urea Nitrogen 16 mg/dL (8-23); Calcium 8.8 mg/dL (8.6-10.3); Carbon Dioxide 26 mEq/L (23-29); Chloride 105 mEq/L (98-107); Chol/HDL Ratio 2.4 (0-4.9); Cholesterol 124 mg/dL (< 200); Glucose 102 mg/dL (70-105); HDL Cholesterol 51 mg/dL (40-59); LDL Cholesterol,Calculated 63 mg/dL (0-99); Osmolality,Calculated 287 (280-300); Potassium 3.9 mEq/L (3.5-5.1); Sodium 138 mEq/L (136-145); Triglycerides 52 mg/dL (< 150); eGFR For African Americans > 60 (> 60); eGFR For Non-African Americans > 60 (> 60)
[2018-05-15 05:35] LABS: Troponin I 1.75 ng/mL (< 0.04)
[2018-05-15 05:57] LABS: Activated Partial Thrombo Time 57.8 Seconds (26.0-36.0)
[2018-05-15] MEDS: Aspirin 81 MG TAB.CHEW PO SCH (07:15)
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
[2018-05-15] MEDS ORDERED: *HR* Heparin 5,000 UNIT/ML VIAL IVP PRN ×2 (13:59)
--- NOTE | 2018-05-15 17:40 | Internal Med Progress Note ---
Date of Encounter: 05/15/18 Time of Encounter: 17:39 - Assessment and plan (1) NSTEMI (non-ST elevated myocardial infarction) Current Visit: Yes Status: Acute Assessment and plan: Cardiology consulted; appreciate input. Chest pain resolved at this time. Plan for [facility] on Thursday. Continue aspirin, statin, plavix, and beta margie. Continue heparin drip. Monitor closely on telemetry. Recheck labwork in AM. (2) Hyperglycemia Current Visit: Yes Status: Resolved Assessment and plan: Resolved. (3) Tobacco use Current Visit: Yes Status: Chronic Assessment and plan: Counselled again on smoking cessation. He is not ready to quit at this time. Declines nicotine replacement therapy. (4) DVT prophylaxis Current Visit: Yes Status: Acute Assessment and plan: Continue heparin drip. - Time Spent With Patient Total time spent is greater than 50% in coordination of care (as documented) at patient's floor/unit and/or counseling patient: less than 15 minutes - Subjective Interval history: Patient had no acute events overnight. He states that he is doing "much better " today. Chest pain has resolved. He denies fever, chills, SOB, nausea, vomiting, and abdominal pain. He has no complaints at this time. - Constitutional Vitals: Temp Pulse Resp BP Pulse Ox 98.0 F 86 18 139/91 92 05/15/18 15:46 05/15/18 15:46 05/15/18 15:46 05/15/18 15:46 05/15/18 15:46 General appearance: Present: cooperative, A&O X 3, pleasant, no acute distress, answers questions appropriately - Respiratory Respiratory exam: Present: CTAB. Absent: accessory muscle use, rales, rhonchi, wheezes Additional comments: Normal WOB - Cardiovascular Cardiovascular exam: Present: RRR, +S1, +S2. Absent: diastolic murmur, gallop, rubs, systolic murmur Additional comments: No BLE edema - GI/Abdominal GI/Abdominal exam: Present: normal bowel sounds, soft. Absent: distended, hepatomegaly, mass, splenomegaly, tenderness - Psychiatric Psychiatric exam: Present: normal affect, normal mood. Absent: agitated, anxious, depressed - Skin Skin exam: Present: dry, intact, warm. Absent: cyanosis, rash Internal Medicine: Result - Labs CBC & Chem 7: 05/15/18 04:57 05/15/18 04:57 - ABG Interpretation ABG results: PT/INR, D-dimer PT 12.4 Seconds (9.4-12.1) H 05/15/18 04:57 Consult Discharge Plan - Plan Referrals: NONE,PCP [Primary Care Provider] -
[2018-05-15] MEDS: Heparin 25,000 UNIT/500 ML D5W 25,000 UNIT/500 ML BAG IVC SCH (20:30)
[2018-05-16] MEDS ORDERED: *HR* LORazepam 2 MG/ML VIAL IVP ONE (00:59)
[2018-05-16] MEDS: Ipratropium/Albuterol Neb 3 ML IH PRN ×2 (01:11→23:47)
[2018-05-16 03:42] LABS: Basophils # 0.1 K/mcL (0.0-0.2); Basophils % 0.7 %; Hemoglobin 14.3 g/dL (12.9-16.9); Immature Granulocytes % 0.2 % (0-4); Lymphocytes # 1.1 K/mcL (0.6-4.6); Lymphocytes % 13.4 %; Mean Corpuscular HGB Conc 33.3 g/dL (31.6-35.5); Mean Corpuscular Hemoglobin 30.1 pg (28.0-33.3); Mean Corpuscular Volume 90.5 fL (83.0-100.0); Mean Platelet Volume 10.1 fL (9.4-12.4); Monocytes # 0.5 K/mcL (0.0-1.3); Monocytes % 6.1 %; Neutrophils # 6.7 K/mcL (1.6-8.9); Platelet Count 196 K/mcL (140-400); Red Blood Count 4.75 M/mcL (4.19-5.50); Red Cell Distribution Width 13.4 % (11.5-14.5); Segmented Neutrophils % 79.6 %
[2018-05-16 04:11] LABS: BUN/Creatinine Ratio 21 (6-26); Blood Urea Nitrogen 16 mg/dL (8-23); Calcium 8.8 mg/dL (8.6-10.3); Carbon Dioxide 26 mEq/L (23-29); Chloride 104 mEq/L (98-107); Glucose 99 mg/dL (70-105); Osmolality,Calculated 285 (280-300); Potassium 3.6 mEq/L (3.5-5.1); Sodium 137 mEq/L (136-145); eGFR For African Americans > 60 (> 60); eGFR For Non-African Americans > 60 (> 60)
[2018-05-16 04:14] LABS: Troponin I 0.96 ng/mL (< 0.04)
[2018-05-16] MEDS: Aspirin 81 MG TAB.CHEW PO SCH (07:25)
[2018-05-16] MEDS: Heparin 25,000 UNIT/500 ML D5W 25,000 UNIT/500 ML BAG IVC SCH (13:22)
--- NOTE | 2018-05-16 13:25 | Cardiology Progress Note ---
Date of Encounter: 05/16/18 Time of Encounter: 13:23 Assessment and Plan (1) NSTEMI (non-ST elevated myocardial infarction) Current Visit: Yes Status: Acute Troponin elevated at 0.43, 1.75, 0.96. C/o chest pressure increasing over the last week with SOB. He was found to have COPD. Cardiac risk factors include tobacco use and PVD. EKG shows ST, HR [address] changes. Multiple PVC seen. TTE ordered. (re-ordered, unsure why it was cancelled.) [facility] recommended. R/B/A of [facility] discussed. He agrees to proceed. Plan for [facility] Thursday. Continue heparin gtt. Asa, statin, and bb. He was given plavix load. Discussion w patient/family: The assessment and plan as outlined above was discussed with the patient and/or family members who expressed understanding and agreement. All questions were answered. Thank you for involving us in the care of your patient. Please call with any questions. Subjective Principal diagnosis: NSTEMI Interval history: C/o cough and SOB. Denies chest pain. Objective Vital Signs, Last 4 Hours Temp Pulse Resp BP Pulse Ox 05/16/18 11:05 97.7 F 64 18 163/95 93 General: Conversant, No Apparent Distress HEENT: Atraumatic, Normocephaly, Mucus Membranes Moist Neck: No JVD, Normal carotid pulses Cardiac: Reg Rate and Rhythm, Normal S1 and S2, No Murmur Lungs: Normal Breath Sounds, No Wheeze, Rales, Rhonchi Neuro: Alert and responsive, No focal deficits noted Abdomen: Soft, Non-Tender Skin: No rashes noted on visualized skin Musculoskeletal: No Chest Wall Tenderness Extremities: No Clubbing, No Cyanosis, No Edema, Normal Pulses Results 05/16/18 02:55 05/16/18 02:55 Lab Results 05/15/18 05/16/18 05/16/18 20:24 02:55 02:55 WBC 8.4 Hgb 14.3 Hct 43.0 Plt Count 196 APTT 82.2 H Sodium 137 Potassium 3.6 Chloride 104 Carbon Dioxide 26 BUN 16 Creatinine 0.78 Glucose 99 Calcium 8.8 Troponin I 0.96 H* 05/16/18 02:55 WBC Hgb Hct Plt Count APTT 77.3 H Sodium Potassium Chloride Carbon Dioxide BUN Creatinine Glucose Calcium Troponin I - Imaging and Cardiology Echo: pending - EKG Interpretation EKG results cardiology: personally reviewed Consult Discharge Plan - Plan Referrals: NONE,PCP [Primary Care Provider] -
--- NOTE | 2018-05-16 13:29 | Internal Med Progress Note ---
Date of Encounter: 05/16/18 Time of Encounter: 13:00 - Assessment and plan (1) Tobacco use Current Visit: Yes Status: Chronic (2) NSTEMI (non-ST elevated myocardial infarction) Current Visit: Yes Status: Acute (3) DVT prophylaxis Current Visit: Yes Status: Acute (4) Hyperglycemia Current Visit: Yes Status: Resolved - Time Spent With Patient Total time spent is greater than 50% in coordination of care (as documented) at patient's floor/unit and/or counseling patient: - Constitutional Vitals: Temp Pulse Resp BP Pulse Ox 97.7 F 64 18 163/95 93 05/16/18 11:05 05/16/18 11:05 05/16/18 11:05 05/16/18 11:05 05/16/18 11:05 General appearance: Present: cooperative, A&O X 3, pleasant, no acute distress, answers questions appropriately Internal Medicine: Result - Labs CBC & Chem 7: 05/16/18 02:55 05/16/18 02:55 Labs: Short CBC 05/16/18 Range/Units 02:55 WBC 8.4 (4.3-11.1) K/mcL Hgb 14.3 (12.9-16.9) g/dL Hct 43.0 (37.5-50.1) % Plt Count 196 (140-400) K/mcL Neutrophils # 6.7 (1.6-8.9) K/mcL BMP 05/16/18 02:55 Sodium 137 Potassium 3.6 Chloride 104 Carbon Dioxide 26 BUN 16 Creatinine 0.78 Glucose 99 Calcium 8.8 Cardiac Enzymes 05/16/18 Range/Units 02:55 Troponin I 0.96 H* (< 0.04) ng/mL - ABG Interpretation ABG results: PT/INR, D-dimer PT 12.4 Seconds (9.4-12.1) H 05/15/18 04:57 Consult Discharge Plan - Plan Referrals: NONE,PCP [Primary Care Provider] -
--- NOTE | 2018-05-16 17:33 | Internal Med Progress Note ---
Date of Encounter: 05/16/18 Time of Encounter: 13:50 - Assessment and plan (1) NSTEMI (non-ST elevated myocardial infarction) Current Visit: Yes Status: Acute Assessment and plan: Cardiology consulted; appreciate input. Chest pain resolved at this time. Plan for LHC on Thursday. Continue aspirin, statin, plavix, and beta margie. Continue heparin drip. Monitor closely on telemetry. Recheck labwork in AM Overall he is doing OK. LHC tomorrow. (2) Tobacco use Current Visit: Yes Status: Chronic Assessment and plan: Counselled again on smoking cessation. He is not ready to quit at this time. Declines nicotine replacement therapy. (3) CAD (coronary artery disease) Current Visit: Yes Status: Chronic Assessment and plan: Hx of prior cardiac issues. Qualifiers: Coronary Disease-Associated Artery/Lesion type: [place] artery [place] vs. transplanted heart: [place] heart Associated angina: without angina Qualified Code(s): I25.10 - Atherosclerotic heart disease of [place] coronary artery without angina pectoris (4) Venous stasis dermatitis of both lower extremities Current Visit: Yes Status: Chronic Assessment and plan: Supportive care. (5) Peripheral artery disease Current Visit: Yes Status: Chronic Assessment and plan: Chronic issue (6) DVT prophylaxis Current Visit: Yes Status: Acute - Time Spent With Patient Total time spent is greater than 50% in coordination of care (as documented) at patient's floor/unit and/or counseling patient: - Subjective Interval history: Mr Fierro is currently admitted for acute NSTEMI. He is to have LHC tomorrow. He remains moderate to high risk due to potential for worsening cardiac status. Mr Fierro feels OK. No further chest pain. He is to have LH tomorrow. No other new issues today. - Constitutional Vitals: Temp Pulse Resp BP Pulse Ox 97.9 F 68 18 168/91 99 05/16/18 15:05 05/16/18 15:05 05/16/18 15:05 05/16/18 15:05 05/16/18 15:05 General appearance: Present: cooperative, A&O X 3, pleasant, answers questions appropriately - Head Head exam: Present: normocephalic - Eye Eye exam: Present: EOMI, conjuntiva pink - ENT ENT exam: Present: mucous membranes moist - Respiratory Respiratory exam: Present: CTAB. Absent: rales, rhonchi, wheezes - Cardiovascular Cardiovascular exam: Present: RRR, systolic murmur. Absent: tachycardia - GI/Abdominal GI/Abdominal exam: Present: normal bowel sounds, soft. Absent: tenderness - Extremities Exam Extremities exam: Present: warm. Absent: tenderness Additional comments: Venous stasis present. - Neurological Exam Neurological exam: Present: alert, oriented X3 - Skin Skin exam: Present: dry, warm Internal Medicine: Result - Labs CBC & Chem 7: 05/16/18 02:55 05/16/18 02:55 Labs: Short CBC 05/16/18 Range/Units 02:55 WBC 8.4 (4.3-11.1) K/mcL Hgb 14.3 (12.9-16.9) g/dL Hct 43.0 (37.5-50.1) % Plt Count 196 (140-400) K/mcL Neutrophils # 6.7 (1.6-8.9) K/mcL BMP 05/16/18 02:55 Sodium 137 Potassium 3.6 Chloride 104 Carbon Dioxide 26 BUN 16 Creatinine 0.78 Glucose 99 Calcium 8.8 Cardiac Enzymes 05/16/18 Range/Units 02:55 Troponin I 0.96 H* (< 0.04) ng/mL - ABG Interpretation ABG results: PT/INR, D-dimer PT 12.4 Seconds (9.4-12.1) H 05/15/18 04:57 Consult Discharge Plan - Plan Referrals: NONE,PCP [Primary Care Provider] -
[2018-05-17] MEDS ORDERED: *HR* LORazepam 2 MG/ML VIAL IVP PRN (02:37)
[2018-05-17] MEDS: Heparin 25,000 UNIT/500 ML D5W 25,000 UNIT/500 ML BAG IVC SCH (06:20)
[2018-05-17] MEDS: Aspirin 81 MG TAB.CHEW PO SCH (07:13)
[2018-05-17] MEDS ORDERED: Nitroglycerin 1,000 MCG/10 ML VIAL IV ONE ×2 (11:03→14:35)
[2018-05-17] MEDS ORDERED: 0.9 % Sodium Chloride 1,000 ML ONE ×3 (11:03→14:35)
[2018-05-17] MEDS ORDERED: ISOVUE-370 200 ML INFUS..BTL IV ONE ×2 (11:03→14:35)
[2018-05-17] MEDS ORDERED: *HR* Heparin 10,000 UNIT/10 ML VIAL ONE ×2 (11:03→14:35)
[2018-05-17] MEDS ORDERED: Heparin 1,000 UNITS/500 mL 500 ML ONE ×2 (11:03→14:35)
[2018-05-17] MEDS ORDERED: Verapamil 5 MG/2 ML VIAL ONE ×2 (11:03→14:34)
--- NOTE | 2018-05-17 12:26 | Pre-Sedation Evaluation ---
Pre-sedation evaluation - Pre-sedation checklist Date of procedure: 05/17/18 Procedure: Left heart cath Recent Vitals: Last Vital Signs Temp 98.8 F 05/17/18 11:48 Pulse 57 05/17/18 11:48 Resp 18 05/17/18 11:48 BP 166/98 05/17/18 11:48 Pulse Ox 95 05/17/18 11:48 H&P (including ROS) documented in medical record: Yes Previous reaction to sedatives/anesthetics: No Dietary Status: NPO after Midnight Dentition: dentures removed ASA Classification *see protocol: CLASS II-Mild systemic disease Plan of Care: Pt appropriate candidate for procedure/moderate/conscious sedation , Risks/benefits of procedure/sedation discussed w/ patient/family Cardiac Registry (Cardio Only) - Functional Capacity Functional Capacity: >=4 METS with symptoms - Clincal Frailty Scale Clinical Frailty Scale: Managing Well
[2018-05-17] MEDS ORDERED: *HR* Midazolam HCl 2 MG/2 ML VIAL ONE (13:38)
[2018-05-17] MEDS ORDERED: *HR* FentaNYL (PF) 100 MCG/2 ML VIAL ONE (13:38)
--- NOTE | 2018-05-17 14:46 | Invasive Diagnostic Lab Proc ---
Name: Wander Fierro Date of Study: 05/17/2018 Date: 1960 Ht: 72.0in Medical Record#: [id number] Age: 58 Wt: 194.01lb Gender: Male BSA: 2.1 Order #: [id number] BMI: 26.28 Physicians Procedure Physician: Drake Pang MD, [facility] Referring MD: Referring MD: Staff Name Position Time In Ellie Bah RN Community Education Specialist 01:34 PM Anoop Starkey RN Monitor 01:34 PM Lynn Garrett RT (R) Scrub 01:34 PM Indications Indication Non-Stemi Procedures Performed Procedure L HRT ARTERY/VENTRICLE ANGIO IVUS CORONARY 1ST VESSEL S&I Pre-Procedure Checklist Informed consent is complete signed and on chart. H&P is on chart. ID band is on and ID verified with patient. Patient NPO for procedure The procedure was described for the patient and questions were answered. ECG is on chart. Plan of Care Patient will tolerate the procedure without complications. Adequate level of comfort will be maintained. Hemodynamics will remain stable Patient will recover from procedure without complications. Respiratory function will be maintained. Cardiac rhythm will remain stable. Patient temperature will be maintained. Patient and/or family have verbalized understanding of the procedure. Patient Education Chief Complaint/Reason for Test: Cardiac Cath Developmental Category: Adult (18-64 years) Developmentally Appropriate for Age: Yes Learning Barriers: None Education Needs: Procedure Education Method: Verbal Information Taught: Cardiac Cath Educational Evaluation: Able to repeat information Intravenous Access Time IV Size Location DC'd Fluid/Drip Rate Units RN 18g 1 /" Patent On Arrival Rt Arm 0.9NaCl ml/hr Allergies NO KNOWN DRUG ALLERGIES No Known Allergies Vital Signs Time BP (mmHg) HR (bpm) O2 Sat. RR (bpm) LOC 01:38 PM / % 5 = Fully awake and oriented or at pre-proc level 01:38 PM / % 4 = Oriented but drowsy 01:53 PM / % 4 = Oriented but drowsy 01:38 PM 191 / 98 54 96 % 01:44 PM 204 / 105 60 97 % 01:46 PM 187 / 108 54 97 % 01:52 PM 159 / 90 55 94 % 01:57 PM 149 / 87 55 91 % 02:02 PM 154 / 87 54 91 % 02:07 PM 147 / 91 57 94 % 02:12 PM 146 / 75 49 92 % 02:17 PM 152 / 96 53 95 % 02:22 PM 154 / 75 53 95 % 02:27 PM 150 / 82 51 93 % Procedural Medications Time Medication Dose Units Method Given By 01:38 PM Oxygen 2 L/min nasal cannula Ellie Bah RN 01:46 PM Versed 2 mg Intravenous Ellie Bah RN 01:46 PM Fentanyl 50 mcg Intravenous Ellie Bah RN 01:52 PM Lidocaine 2% 0.5 ml Subcutaneous Drake Pang MD, FAC 01:54 PM Heparin 2000 units Nitroglycerin 200 mcg Verapamil 2.5 mg Intraarterial Drake Pang MD, FAC 02:08 PM Nitroglycerin 200 mcg Intracoronary Drake Pang MD 02:08 PM Heparin 2000 units Intravenous Ellie Bah RN ASA Classification: CLASS II- Mild systemic disease (i.e. well-controlled diabetes, hypertension, asthma, cigarette smoking) Tarsha Score Preprocedure Postprocedure Activity 2- Moves 4 extremities sustained head lift Activity 2- Moves 4 extremities sustained head lift Circulation 2- SBP +/= 20 points of pre-anesthetic level Circulation 2- SBP +/= 20 points of pre-anesthetic level Consciousness 2- Awake and alert oriented x 3 Consciousness 2- Awake and alert oriented x 3 O2 Saturation 2- Able to maintain O2 satruation of 92% on room air O2 Saturation 2- Able to maintain O2 satruation of 92% on room air Respiratory 2- Able to deep breathe and cough well Respiratory 2- Able to deep breathe and cough well Total Score 10 Total Score 10 Contrast Agent: Isovue Diagnostic Contrast: 79 ml Total Contrast: 79 ml Fluoro Dose: 467 mGy Activated Clotting Time Time Seconds to Clot 02:08 PM 221 Procedure Log Time Note Enter By 12:22 PM CathStat 01:33 PM Pt arrived to biology laboratory assistant 1 at 13:33 cedwards 01:33 PM Patient charges- Angio tray pack, Navilyst 3mm J, Pulse Oximetry and ACIST tubing and transducer cedwards 01:33 PM IV Supplies used: J loop Angio Cath. cedwards 01:34 PM Ellie Bah RN Position: Community Education Specialist Time in: 13:34 cedwards 01:34 PM Anoop Starkey RN Position: Monitor Time in: 13:34 cedwards 01:34 PM Lynn Garrett RT (R) Position: Scrub Time in: 13:34 cedwards :35 PM Hair removed from procedure site in procedure lab using clippers. Right wrist prepped with Chloraprep by Lynn Garrett (Garcia), then patient was draped. Skin intact. cedwards :35 PM Hair removed from procedure site in procedure lab using clippers. Right groin prepped with Chloraprep by Ellie Bah RN, then patient was draped. Skin intact. :35 PM Physician arrived 13:35 ced:35 PM Meet and greet completed :35 PM Sign in performed according to hospital policy. ced:35 PM Procedure start 13:35 ced:36 PM IV infiltrated, 20 gauge IV started in right AC ced:36 PM Vitals capture started with the following parameters, Patient=Adult, Interval=5 min, Initial Ohxusvcn=009 mmHg, Deflation Rate=3 mmHg, Cuff placed on Right Arm :38 PM Time: 13:38 Patient comfortable and pain free: Yes 38 PM Time: 13:38LOC: 5 = Fully awake and oriented or at pre-proc level ced:38 PM Time: 13:38 Oxygen on at 2 L/min per nasal cannula by Ellie Bah RN cedwards :38 PM HR=54 bpm, QWMF=553/98 mmhg, SpO2=96.0 %, Comment=NSR 01:39 PM Recorded ECG: HR=64 Condition=Condition 1 01:44 PM HR=60 bpm, NUIF=117/105 mmhg, SpO2=97.0 %, Comment=NSR 01:45 PM NIBP STAT measurement started. 01:46 PM Time: 13:46 Versed 2 mg Intravenous Given by Ellie Bah RN cedwards 01:46 PM HR=54 bpm, ILXY=487/108 mmhg, SpO2=97.0 %, Comment=NSR 01:46 PM Time: 13:46 Fentanyl 50 mcg Intravenous Given by Ellie Bah RN cedwards 01:50 PM ASA Class CLASS II- Mild systemic disease (i.e. well-controlled diabetes, hypertension, asthma, cigarette smoking) cedwards 01:52 PM Clinical Presentation: Non-STEMI cedwards :52 PM Time out performed according to hospital policy ced:52 PM Time: 13:52 0.5 ml Lidocaine 2% to right radial Subcutaneous Given by Drake Pang MD, [facility] cedwards 01:52 PM HR=55 bpm, QOMF=822/90 mmhg, SpO2=94.0 %, Comment=NSR 01:53 PM Access obtained by percutaneous puncture. 5/6Fr 11cm Terumo Glidesheath sheath placed in right Radial artery. [id number] cedwards 01:53 PM Time: 13:38 Patient comfortable and pain free: Yes cedwards 01:53 PM Time: 13:38LOC: 4 = Oriented but drowsy cedwards 01:53 PM 0.035 145cm Navilyst 3mmJ wire [id number] cedwards 01:54 PM Time: 13:54 Patient given 2,000 units Heparin, 200 mcg Nitroglycerin, and 2.5 mg Verapamil Intraarterial by Drake aPng MD, [facility]. This is given to reduce risk of vessel spasm and thrombosis. cedwards 01:55 PM 5Fr TIG catheter inserted over the wire [facility] cedwards 01:56 PM 0.035 145cm [place] Hi-Torque wire [id number] cedwards 01:57 PM LCA angiography performed in multiple views. cedwards 01:57 PM HR=55 bpm, UWPH=407/87 mmhg, SpO2=91.0 % 01:58 PM Recorded Pressure: Ao, HR=54, Condition=Condition 1 (Aorta) Ao 102/67/83 01:58 PM Recorded Pressure: Ao, HR=59, Condition=Condition 1 (Aorta) Ao 102/65/83 01:58 PM RCA angiography performed in multiple views. cedwards 01:59 PM Coronary Dominance: right cedwards 02:00 PM Recorded Pressure: Ao, HR=59, Condition=Condition 1 (Aorta) Ao 101/65/83 02:01 PM Lesion found in Right PDA. Pre Stenosis: 20 Pre CINTIA Flow: cedwards 02:01 PM Catheter removed cedwards 02:02 PM 5Fr Pigtail catheter inserted over the wire [facility] cedwards 02:02 PM HR=54 bpm, INPL=028/87 mmhg, SpO2=91.0 %, Comment=NSR 02:03 PM Pressure channel 1 zeroed. 02:04 PM Catheter selectively placed in left ventricle cedwards 02:04 PM Recorded Pressure: LV, HR=55, Condition=Condition 1 (Left Ventricle) LV 143/10/15 02:04 PM Recorded Pressure: LV, Ao, HR=63, Condition=Condition 1 (Left Ventricle) LV 123/13/17, (Aorta) Ao 130/84/106 02:05 PM Bolus angiogram of left Ventricle complete: 10 ml/sec for a total of 20 mls cedwards 02:06 PM Catheter removed cedwards 02:07 PM HR=57 bpm, GEHU=250/91 mmhg, SpO2=94.0 %, Comment=NSR 02:07 PM 6Fr RBL 3.5 [place] guide catheter was used to cannulate the PCI vessel successfully. reused? No cedwards 02:08 PM Time: 14:08 Nitroglycerin 200 mcg Intracoronary Given by Drake Pang MD cedwards 02:08 PM Time: 13:53LOC: 4 = Oriented but drowsy cedwards 02:08 PM Time: 13:53 Patient comfortable and pain free: Yes cedwards 02:08 PM At 14:08 the ACT was 221 seconds. cedwards 02:08 PM Time: 14:08 Heparin 2000 units Intravenous Given by Ellie Bah RN cedwards 02:11 PM .014 [place] 190cm guide wire across target lesion- successful. reused? No cedwards 02:11 PM 3.6Fr/40mHz [employer] Opti Cross IVUS catheter was inserted into guide catheter and advanced to lesion. IVUS study was done and the catheter was removed. cedwards 02:12 PM HR=49 bpm, EFVP=304/75 mmhg, SpO2=92.0 % 02:17 PM HR=53 bpm, HWQT=451/96 mmhg, SpO2=95 % 02:17 PM Recorded Pressure: Ao, HR=52, Condition=Condition 1 (Aorta) Ao 172/105/132 02:20 PM Guide wire removed intact. cedwards 02:20 PM Guide catheter removed intact. cedwards 02:20 PM Procedure completed at 14:20 05/17/2018 cedwards 02:22 PM Did you address CINTIA flow and Dominance? Yes cedwards 02:22 PM HR=53 bpm, GZBR=203/75 mmhg, SpO2=95.0 % 02:22 PM Sign out completed: Radiation Dose 466.71 mGy, 466.71 Gy/cm2 Fluoro Time: 3.5 Isovue 370 - 200ml contrast 78.8 ml given by Drake Pang MD, FACC. Complications: NoneCardiac Rehab Consult needed: NoConfirmed administered medications: No cedwards 02:22 PM Isovue 370 - 200ml,1 Bottle(s) used. cedwards 02:23 PM 11 ml air in Vasc Band. cedwards 02:23 PM Estimated Blood Loss: minimal cedwards 02:23 PM Post ECG NSR cedwards 02:23 PM Post Blood Pressure 154/75 cedwards 02:23 PM Information taught Cardiac Cath and IVUS/Flowire cedwards 02:23 PM Education needs Procedure, Plan of Care, Disease Process, and Responsibilities of Patient in Care cedwards 02:23 PM Learning barriers :None cedwards 02:23 PM Education Methods Verbal cedwards 02:23 PM Education evaluation Able to repeat information cedwards 02:24 PM Site status No bleeding/hematoma - Rt Wrist as reported by Sites, Lynn RT (R) at 14:24 cedwards 02:24 PM Plavix, Effient or Brilinta given No cedwards 02:24 PM Family placed in consult room. cedwards 02:24 PM Complications: None cedwards 02:24 PM Fluoro Time: 3.5 cedwards 02:24 PM Isovue 370 - 200ml contrast 78.[address] Pang. cedwards 02:25 PM Radiation Dose 466.71 mGy cedwards 02:25 PM Lesion found in Mid Circumflex. Pre Stenosis: 40 Pre CINTIA Flow: cedwards 02:27 PM HR=51 bpm, CEYG=541/82 mmhg, SpO2=93.0 % 02:34 PM Patient out of room: 14:34 cedwards 02:35 PM Report given to Chely CONNORS Pt taken to 2N Room #9. 14:34 cedwards Complications Complication None None Hemodynamics Pressures Site Systolic/A Wave Diastolic/V Wave Mean AO 102 67 83 AO 102 65 83 AO 101 65 83 LV 143 10 15 LV 123 13 17 AO 130 84 106 AO 172 105 132 Post Procedure Information Blood Pressure: 154/75 mmHg Rhythm: NSR Post procedural instructions were given Closure Device Time Device Success/Fail 05/17/2018 2:26:00 PM Mechanical Compression Successful Site Checks Time Location Status Staff Sheath In? Note 02:24 PM Rt Wrist No bleeding/hematoma Sites, Lynn RT (R) Pulses Time Site Pre-Procedure Post-Procedure Note Bilateral radial 2+ Bilateral PT 2+ Bilateral DP None Updated by Anoop Starkey RN on 05/17/2018 2:35:59 PM electronically signed on 05/17/2018 2:37:16 PM with status of Final
--- NOTE | 2018-05-17 15:25 | Internal Med Progress Note ---
Date of Encounter: 05/17/18 Time of Encounter: 15:23 - Assessment and plan (1) NSTEMI (non-ST elevated myocardial infarction) Current Visit: Yes Status: Acute Assessment and plan: Cardiology consulted; appreciate input. Chest pain resolved at this time. S/P LHC today with no intervention. Continue aspirin, statin, plavix, and beta margie. Monitor closely on telemetry. Recheck labwork in AM. (2) Tobacco use Current Visit: Yes Status: Chronic Assessment and plan: Counselled again on smoking cessation. He is not ready to quit at this time. Declines nicotine replacement therapy. (3) CAD (coronary artery disease) Current Visit: Yes Status: Chronic Assessment and plan: Management as per above. Qualifiers: Coronary Disease-Associated Artery/Lesion type: [place] artery [place] vs. transplanted heart: [place] heart Associated angina: without angina Qualified Code(s): I25.10 - Atherosclerotic heart disease of [place] coronary artery without angina pectoris (4) Venous stasis dermatitis of both lower extremities Current Visit: Yes Status: Chronic Assessment and plan: Continue supportive care. (5) Peripheral artery disease Current Visit: Yes Status: Chronic Assessment and plan: Chronic issue. (6) DVT prophylaxis Current Visit: Yes Status: Acute Assessment and plan: Start SCDs. - Time Spent With Patient Total time spent is greater than 50% in coordination of care (as documented) at patient's floor/unit and/or counseling patient: less than 15 minutes - Subjective Interval history: Patient had no acute events overnight. He states that cath went well today; no intervention. Chest pain remains resolved. He denies fever, chills, SOB, nausea, vomiting, and abdominal pain. He has no complaints at this time. - Constitutional Vitals: Temp Pulse Resp BP Pulse Ox 97.6 F 53 17 151/94 95 05/17/18 15:15 05/17/18 15:00 05/17/18 15:15 05/17/18 15:15 05/17/18 15:15 General appearance: Present: cooperative, A&O X 3, pleasant, no acute distress, answers questions appropriately - Respiratory Respiratory exam: Present: CTAB. Absent: accessory muscle use, rales, rhonchi, wheezes Additional comments: Normal WOB - Cardiovascular Cardiovascular exam: Present: RRR, +S1, +S2. Absent: diastolic murmur, gallop, rubs, systolic murmur Additional comments: No BLE edema - GI/Abdominal GI/Abdominal exam: Present: normal bowel sounds, soft. Absent: distended, hepatomegaly, mass, splenomegaly, tenderness - Psychiatric Psychiatric exam: Present: normal affect, normal mood. Absent: agitated, anxious, depressed - Skin Skin exam: Present: dry, intact, warm. Absent: cyanosis, rash Internal Medicine: Result - Labs CBC & Chem 7: 05/16/18 02:55 05/16/18 02:55 - ABG Interpretation ABG results: PT/INR, D-dimer PT 12.4 Seconds (9.4-12.1) H 05/15/18 04:57 - Impressions Impressions Echocardiogram 05/16/18 11:09 Impressions: LVEF 55%. Normal LV chamber size, wall thickness and overall function. Mild segmental left ventricular systolic dysfunction. Pseudonormal left ventricular diastolic function. Normal right ventricular structure and function. Mild pulmonary hypertension. No significant valvular dysfunction. Left Ventricular Wall Motion: Rest Echo Findings The apex, apical inferior, apical septal and mid anterior septal gipson were hypokinetic. All other wall segments showed normal motion. Findings: Study Quality * Technically adequate exam. ECG Findings * Normal sinus rhythm. Left Ventricle * LVEF 55%. * Normal LV chamber size, wall thickness and overall function. * Mild segmental left ventricular systolic dysfunction. * Pseudonoral left ventricular diastolic function. Right Ventricle * Normal right ventricular structure and function. Left Atrium * Normal left atrial size. Right Atrium * Normal right atrial size. Aortic Valve * Aortic valve not well visualized. * No aortic regurgitation. * No aortic stenosis. Mitral Valve * Normal mitral valve structure and function. * No mitral stenosis. * No mitral regurgitation. Tricuspid Valve * Normal tricuspid valve structure and function. * Trace tricuspid regurgitation. * Mild pulmonary hypertension. Pulmonic Valve * Normal pulmonic valve structure and function. * No pulmonic regurgitation. Aorta * Normally sized aortic root. Pericardium * The pericardium appears normal. IVC * Normal IVC dimensions and inspiratory collapse. Pulmonary Artery * Normal visualized portions of the main pulmonary artery. - VTE Documentation of Mechanical Device: Intermittent pneumatic compression device Consult Discharge Plan - Plan Referrals: Justyn Whitney CNP [Advanced Practice Nurse] - (office will call patient at home with follow up appointment) Dennis Bledsoe MD [Partnered Physician] - 05/27/18 2:15 pm (Please take the new patient packet filled out to your doctors appointment. Please take Ins Card , Picture ID, and a list of all medication including over the counter meds. Show up 15 minutes early for your appointment. If you need to cancel please call [phone] with in 24 hours of your appointment.)
--- NOTE | 2018-05-17 16:28 | Event Note ---
Date of Encounter: 05/17/18 Time of Encounter: 16:42 - Cardiology Event Note C completed. No intervention needed. TTE shows EF 55% with WMA. Recommend medical management. Continue asa, statin, and bb. Plavix for one month. Cardiac rehab ordered. Out-pt f/u with cardiology in 2 weeks will be coordinated by [facility]. Call with questions.
--- NOTE | 2018-05-17 17:49 | Electrocardiograph Report ---
[address] [address] Test Date: 2018-05-14 Pat Name: Wander Fierro Department: 104 Room: 2N09 Gender: M Logistics Account Manager: PAUL : 1960 Requested By: Say Hopper Order Number: [id number] Reading MD: Drake Pang Measurements Intervals [place] Rate: 100 P: 44 SC: 140 QRS: 15 QRSD: 80 T: 26 QT: 343 QTc: 400 Interpretive Statements SINUS TACHYCARDIA WITH FREQUENT VENTRICULAR PREMATURE COMPLEXES Electronically Signed On 05-17-2018 17:47:38 EDT by Drake Pang
--- NOTE | 2018-05-17 18:00 | Electrocardiograph Report ---
[address] [address] Test Date: 2018-05-15 Pat Name: Wander Fierro Department: 110 Room: 2N09 Gender: M Solderer: [place] : 1960 Requested By: [id number] Order Number: [id number] Reading MD: Drake Pang Measurements Intervals [place] Rate: 68 P: 153 IL: 133 QRS: -5 QRSD: 91 T: 60 QT: 409 QTc: 427 Interpretive Statements ECTOPIC ATRIAL RHYTHM WITH OCCASIONAL VENTRICULAR PREMATURE COMPLEXES Electronically Signed On 05-17-2018 17:58:28 EDT by Drake Pang
[2018-05-18] MEDS: Ipratropium/Albuterol Neb 3 ML IH PRN (02:52)
[2018-05-18 04:21] LABS: Basophils # 0.1 K/mcL (0.0-0.2); Basophils % 0.9 %; Eosinophils % 0.2 %; Hematocrit 42.2 % (37.5-50.1); Hemoglobin 13.7 g/dL (12.9-16.9); Immature Granulocytes % 0.3 % (0-4); Lymphocytes # 0.9 K/mcL (0.6-4.6); Lymphocytes % 14.3 %; Mean Corpuscular HGB Conc 32.5 g/dL (31.6-35.5); Mean Corpuscular Hemoglobin 29.2 pg (28.0-33.3); Mean Platelet Volume 9.6 fL (9.4-12.4); Monocytes # 0.5 K/mcL (0.0-1.3); Monocytes % 7.9 %; Platelet Count 183 K/mcL (140-400); Red Blood Count 4.69 M/mcL (4.19-5.50); Red Cell Distribution Width 13.8 % (11.5-14.5); Segmented Neutrophils % 76.4 %
[2018-05-18 04:39] LABS: BUN/Creatinine Ratio 18 (6-26); Blood Urea Nitrogen 14 mg/dL (8-23); Calcium 8.9 mg/dL (8.6-10.3); Carbon Dioxide 25 mEq/L (23-29); Chloride 107 mEq/L (98-107); Glucose 106 mg/dL (70-105); Osmolality,Calculated 287 (280-300); Potassium 3.9 mEq/L (3.5-5.1); Sodium 138 mEq/L (136-145); eGFR For African Americans > 60 (> 60); eGFR For Non-African Americans > 60 (> 60)
[2018-05-18] MEDS: Aspirin 81 MG TAB.CHEW PO SCH (07:20)
--- NOTE | 2018-05-18 14:30 | Discharge Summary ---
- NOTES TO OUTPATIENT PROVIDER Notes to Outpatient Provider: Patiet to follow-up with cardiology in 2 weeks Date of Encounter: 05/18/18 Time of Encounter: 11:00 - Discharge Diagnosis (1) Tobacco use Priority: Secondary Status: Chronic (2) NSTEMI (non-ST elevated myocardial infarction) Priority: Primary Status: Acute (3) CAD (coronary artery disease) Priority: Secondary Status: Chronic Qualifiers: Coronary Disease-Associated Artery/Lesion type: [place] artery [place] vs. transplanted heart: [place] heart Associated angina: without angina Qualified Code(s): I25.10 - Atherosclerotic heart disease of [place] coronary artery without angina pectoris (4) Venous stasis dermatitis of both lower extremities Priority: Secondary Status: Chronic (5) Peripheral artery disease Priority: Secondary Status: Chronic Hospital course: Patient is a 58-year-old male with past medical history significant for mood disorder and peripheral arterial disease who presents to the ER on 05/15/18 due to shortness of breath and chest pain. Patient reported that his symptoms began the evening of admission after returning from work. He decided to come into the ER for evaluation. In the ER, patient was found to have elevated troponin and was admitted for ACS rule out. During his hospital stay cardiology was consulted with recommendation for left heart catheterization was done and did not require any intervention; TTE showed EF of 55%. Recommendations for cardiology to discharge patient on aspirin, statin, beta margie and Plavix. Patient will follow-up with cardiology in 2 weeks. - Time Spent with Patient Total time spent providing and/or coordinating discharge services: Less than 30 minutes - Discharge Medications Prescriptions: Aspirin 81 mg PO DAILY #30 tab.chew Atorvastatin [Lipitor] 80 mg PO HS #60 tablet Clopidogrel [Plavix] 75 mg PO DAILY #30 tablet Metoprolol [Lopressor] 25 mg PO BID #60 tablet Home Medications: Ibuprofen [Ibu] 600 mg PO Q8H PRN 05/15/18 [History] Aspirin 81 mg PO DAILY #30 tab.chew 05/18/18 [Rx] Atorvastatin [Lipitor] 80 mg PO HS #60 tablet 05/18/18 [Rx] Clopidogrel [Plavix] 75 mg PO DAILY #30 tablet 05/18/18 [Rx] Metoprolol [Lopressor] 25 mg PO BID #60 tablet 05/18/18 [Rx] Allergies/Adverse Reactions: 3 Allergy/AdvReac Type Severity Reaction Status Date / Time No Known Allergies Allergy Verified 05/15/18 16:15 Date of admission: 05/15/18 09:08 Primary care physician: PCP NONE Consults: 05/18/18 07:33 Consult to Cardiac Rehabilitation-Phase1 [CONS] Routine Comment: Reason for Consult: NSTEMI Call Completed: No - Constitutional Vitals: Temp Pulse Resp BP Pulse Ox 97.6 F 58 18 140/87 97 05/18/18 11:26 05/18/18 11:26 05/18/18 11:26 05/18/18 11:26 05/18/18 11:26 General appearance: Present: cooperative, A&O X 3, pleasant, no acute distress, answers questions appropriately - Cardiovascular Cardiovascular exam: Present: RRR, +S1, +S2. Absent: diastolic murmur, gallop, rubs, systolic murmur - Patient Status Disposition: Home, Self-Care Condition: Good - Discharge Instructions Instructions: Myocardial Infarction (DC), Peripheral Vascular Disorders (DC), Anemia (GEN), Return to Work Instructions (DC) Follow Up With: Justyn Whitney VULNERABILITY RESEARCHER [Advanced Practice Nurse] - (office will call patient at home with follow up appointment) Dennis Bledsoe MD [Partnered Physician] - 05/27/18 2:15 pm (Please take the new patient packet filled out to your doctors appointment. Please take Ins Card , Picture ID, and a list of all medication including over the counter meds. Show up 15 minutes early for your appointment. If you need to cancel please call [phone] with in 24 hours of your appointment.) - VTE Documentation of Mechanical Device: Intermittent pneumatic compression device
[2018-05-18 16:30] VITALS: BP 160/93
== END 2018-05-18 17:40 | disposition home or self-care (01) | DRG 281 ==
LOC: 2ANU 21:17 → EMEROO 21:17 → 2ANU 05-15 00:29 → 2NNU 05-15 00:39 → SUATTDRO 05-15 09:08
PROVIDERS: ADMIT Internal Medicine Nephrology; ATTEND Hospitalist